=== PATIENT | female | born 1930 | race Caucasian/White ===

== ENCOUNTER 2016-08-16 18:23 | Emergency (ER) | payer MEDICARE ==
[~2016-08-16] VITALS: Ht 154.9 cm; Wt 43.5 kg
[~2016-08-16 18:23] MED LIST: GLIP-115; LEVO50TA7
[2016-08-16 19:27] LABS: Basophils # (auto) 0 uL; Basophils % (auto) 0.4 % (0.0-2.0); Eosinophils # (auto) 0.1 uL; Eosinophils % (auto) 2.1 % (0.0-7.0); Hematocrit 32.5 % (36.0-46.0); Hemoglobin 10.5 g/dL (12.2-16.2); Lymphocytes % (auto) 30.5 % (10.0-50.0); Mean Corpuscular Hemoglobin 31.4 pg (28.0-32.0); Mean Corpuscular Hgb Conc. 32.3 g/dL (32.0-36.0); Mean Corpuscular Volume 97.3 fL (80.0-100.0); Mean Platelet Volume 7.7 fL (7.4-10.4); Monocytes # (auto) 0.7 uL; Neutrophils # (auto) 3.7 uL; Platelet Count (auto) 584 10^3/uL (140-450); Red Cell Distribution Width 15.3 % (11.6-16.0); White Blood Cell 6.5 10^3/uL (4.4-10.8)
[2016-08-16 19:46] LABS: Albumin 2.9 g/dL (3.4-5.0); BUN/Creatinine Ratio 28.7; Bilirubin, Total 0.3 mg/dL (0.2-1.0); Magnesium 2.5 mg/dL (1.6-2.6); Potassium 4.3 mmol/L (3.5-5.1); Total Protein 7.9 g/dL (6.4-8.2)
[2016-08-16] MEDS ORDERED: AMOXICILLIN 200MG/5ml ORAL Susp 50ML PO ONE (22:15)
[2016-08-16 23:33] VITALS: BP 115/75
== END 2016-08-16 23:46 | disposition home or self-care (01) ==
LOC: ER 18:30
DX: J40 Bronchitis, not specified as acute or chronic (principal); E11.9 Type 2 diabetes mellitus without complications; E07.9 Disorder of thyroid, unspecified; Z98.890 Other specified postprocedural states
CPT/HCPCS: 36415; 71020; 80053; 83735; 84484; 85025; 85049; 93005

== ENCOUNTER 2016-09-22 16:04 | Emergency (ER) | payer MEDICARE ==
[2016-09-22] MEDS ORDERED: LACTULOSE 20Gm/30ML SOLN PO ONE (16:45)
[2016-09-22] MEDS ORDERED: FLEET ENEMA(ADULT) 135 ML PR ONE (16:45)
[2016-09-22 21:21] VITALS: BP 130/52
== END 2016-09-22 21:31 | disposition home or self-care (01) ==
LOC: ER 16:10
DX: K59.00 Constipation, unspecified (principal); R10.9 Unspecified abdominal pain; E11.9 Type 2 diabetes mellitus without complications; E07.9 Disorder of thyroid, unspecified; Z79.899 Other long term (current) drug therapy
CPT/HCPCS: 74000; 93005

== ENCOUNTER 2016-10-05 14:52 | Emergency (ER) | payer MEDICARE ==
[~2016-10-05] VITALS: Ht 162.6 cm; Wt 43.1 kg
[2016-10-05] MEDS: LIDOCAINE 2%HCL (LOCAL ANESTH.) INJ 20ML MDV ONE (15:37)
[2016-10-05] MEDS: LIDOCAINE 2%HCL (LOCAL ANESTH.) INJ 20ML MDV IJ ONE (16:16)
[2016-10-05 17:30] VITALS: BP 140/89
== END 2016-10-05 18:09 | disposition home or self-care (01) ==
LOC: EDBD 14:52 → ER 14:52
DX: S01.81XA Laceration without foreign body of other part of head, initial encounter (principal); S09.90XA Unspecified injury of head, initial encounter; E11.9 Type 2 diabetes mellitus without complications; E07.9 Disorder of thyroid, unspecified; W01.0XXA Fall on same level from slipping, tripping and stumbling without subsequent striking against object, initial encounter; Y93.89 Activity, other specified; Y99.8 Other external cause status; Y92.89 Other specified places as the place of occurrence of the external cause
CPT/HCPCS: 12011; 70450

== ENCOUNTER 2016-10-10 20:01 | Emergency (ER) | payer MEDICARE ==
[~2016-10-10] VITALS: Ht 154.9 cm; Wt 45.4 kg
[2016-10-10 21:29] LABS: Basophils # (auto) 0 uL; Basophils % (auto) 0.2 % (0.0-2.0); Eosinophils # (auto) 0.1 uL; Eosinophils % (auto) 1.3 % (0.0-7.0); Hematocrit 34.4 % (36.0-46.0); Hemoglobin 11.4 g/dL (12.2-16.2); Lymphocytes # (auto) 2.6 uL; Lymphocytes % (auto) 30.2 % (10.0-50.0); Mean Corpuscular Hemoglobin 32.4 pg (28.0-32.0); Mean Corpuscular Hgb Conc. 33.1 g/dL (32.0-36.0); Mean Corpuscular Volume 97.8 fL (80.0-100.0); Mean Platelet Volume 8.1 fL (7.4-10.4); Monocytes # (auto) 0.8 uL; Monocytes % (auto) 9.7 % (0.0-12.0); Neutrophils % (auto) 58.6 % (37.0-80.0); Platelet Count (auto) 443 10^3/uL (140-450); White Blood Cell 8.6 10^3/uL (4.4-10.8)
[2016-10-10 21:48] LABS: INR 0.97 (0.9-1.15); Partial Thromboplastin Time 27.1 sec (22.64-33.71)
[2016-10-10 22:13] LABS: B-Type Natriuretic Peptide 50.29 pg/mL (0-100); Temperature: 23.5 C (20.0-25.0)
[2016-10-10 22:20] LABS: Chloride 97 mmol/L (98-107); Potassium 3.8 mmol/L (3.5-5.1); Sodium 136 mmol/L (136-145)
[2016-10-10 22:28] LABS: Albumin 3.3 g/dL (3.4-5.0); Anion Gap 12 (5-15); Aspartate Aminotransferase 8 U/L (15-37); BUN/Creatinine Ratio 15.7; Blood Urea Nitrogen 22 mg/dL (7-18); Calcium 10.7 mg/dL (8.5-10.1); Carbon Dioxide 27 mmol/L (21-32); GFR African American 46 mL/min; GFR Non-African American 38 mL/min; Glucose 104 mg/dL (74-106); Magnesium 1.9 mg/dL (1.6-2.6)
[2016-10-10 22:37] LABS: Alkaline Phosphatase 91 U/L (45-117); Bilirubin, Total 0.3 mg/dL (0.2-1.0); Total Protein 7.9 g/dL (6.4-8.2)
[2016-10-11] MEDS ORDERED: ACETAMINOPHEN 650 mg PER 20 mL UD PO ONE (04:15)
[2016-10-11] MEDS ORDERED: KETOROLAC TROMETH 30 MG/ML 1ML VIAL IV ONE (05:45)
[2016-10-11] MEDS ORDERED: SODIUM CHLORIDE 0.9% 1,000 ML IV ONE (05:45)
[2016-10-11 06:35] VITALS: BP 157/75
== END 2016-10-11 07:18 | disposition home or self-care (01) ==
LOC: ER 20:18
DX: K59.00 Constipation, unspecified (principal); E86.0 Dehydration; E11.9 Type 2 diabetes mellitus without complications; E07.89 Other specified disorders of thyroid
CPT/HCPCS: 36415; 71010; 74176; 80053; 83735; 83880; 84443; 84484; 85025; 85610; 85730; 93005; 96361; 96374; 99285; J1885

== ENCOUNTER 2016-10-15 17:08 | Inpatient (IN) | payer MEDICARE, MEDICAID ==
[~2016-10-15] VITALS: Ht 162.6 cm; Wt 46.0 kg
[2016-10-15 17:51] LABS: Basophils # (auto) 0 uL; Basophils % (auto) 0.5 % (0.0-2.0); Eosinophils # (auto) 0.1 uL; Eosinophils % (auto) 1.4 % (0.0-7.0); Hematocrit 35.5 % (36.0-46.0); Hemoglobin 11.7 g/dL (12.2-16.2); Lymphocytes # (auto) 2.4 uL; Lymphocytes % (auto) 28.4 % (10.0-50.0); Mean Corpuscular Hemoglobin 32.2 pg (28.0-32.0); Mean Corpuscular Volume 97.6 fL (80.0-100.0); Mean Platelet Volume 7.8 fL (7.4-10.4); Monocytes # (auto) 0.9 uL; Monocytes % (auto) 11.4 % (0.0-12.0); Neutrophils # (auto) 4.9 uL; Neutrophils % (auto) 58.3 % (37.0-80.0); Platelet Count (auto) 493 10^3/uL (140-450); Red Cell Distribution Width 13.7 % (11.6-16.0); White Blood Cell 8.3 10^3/uL (4.4-10.8)
[2016-10-15 18:17] LABS: BUN/Creatinine Ratio 13.9; Bilirubin, Total 0.3 mg/dL (0.2-1.0); Calcium 11.9 mg/dL (8.5-10.1); Potassium 3.7 mmol/L (3.5-5.1); Total Protein 7.7 g/dL (6.4-8.2)
[2016-10-15 18:19] LABS: INR 0.99 (0.9-1.15); Partial Thromboplastin Time 27.6 sec (22.64-33.71); Prothrombin Time 10.2 sec (9.37-12.3)
[2016-10-15] MEDS ORDERED: DEXTROSE (50%) 50ML SYRG IV ONE (19:45)
[2016-10-15] MEDS ORDERED: SODIUM CHLORIDE 0.9% 1,000 ML IV SCH (21:18)
[2016-10-15] MEDS ORDERED: ACETAMINOPHEN 325 MG TAB PO PRN (21:30)
[2016-10-15] MEDS ORDERED: DOCUSATE SOD 100 MG CAP PO PRN (21:30)
[2016-10-15] MEDS ORDERED: ONDANSETRON HCL 4 MG/2 ML VIAL IV PRN (21:30)
[2016-10-15] MEDS ORDERED: HYDROcodone-ACET 5/325MG TAB PO PRN (21:30)
[2016-10-15] MEDS ORDERED: DEXTROSE (50%) 50ML SYRG IV PRN (21:30)
[2016-10-15] MEDS ORDERED: TEMAZEPAM 15 MG CAP PO PRN (21:30)
[2016-10-15] MEDS: FAMOTIDINE 20 MG TAB PO SCH (22:33)
[2016-10-15 22:42] LABS: Urine Bilirubin Negative (Negative); Urine Color Yellow (Yellow); Urine Hyaline Cast MOD /lpf (0 - 2); Urine Ketone Negative (Negative); Urine Nitrite Negative (Negative); Urine RBC 15 /hpf (0 - 4); Urine Squamous Epithelial Cell FEW /hpf (<5); Urine Urobilinogen Normal (Negative)
[2016-10-15 22:44] LABS: Urine Blood 1+ /uL (Negative); Urine Glucose 1+ mg/dL (Normal)
[2016-10-15 23:00] VITALS: BP 136/70
[2016-10-15 23:19] VITALS: BP 136/70
[2016-10-16] MEDS: ACCU-CHEK COMFORT CURVE STRIP VI SCH ×5 (00:15→23:35)
[2016-10-16 05:20] LABS: Basophils # (auto) 0 uL; Basophils % (auto) 0.4 % (0.0-2.0); Eosinophils # (auto) 0.1 uL; Eosinophils % (auto) 2.1 % (0.0-7.0); Hematocrit 29.7 % (36.0-46.0); Hemoglobin 9.7 g/dL (12.2-16.2); Lymphocytes % (auto) 29.5 % (10.0-50.0); Mean Corpuscular Hemoglobin 32.1 pg (28.0-32.0); Mean Corpuscular Hgb Conc. 32.6 g/dL (32.0-36.0); Mean Corpuscular Volume 98.6 fL (80.0-100.0); Monocytes # (auto) 0.7 uL; Monocytes % (auto) 11.3 % (0.0-12.0); Neutrophils # (auto) 3.8 uL; Neutrophils % (auto) 56.7 % (37.0-80.0); Platelet Count (auto) 388 10^3/uL (140-450); White Blood Cell 6.6 10^3/uL (4.4-10.8)
[2016-10-16 05:40] VITALS: BP 95/48
[2016-10-16 05:56] LABS: Albumin 2.4 g/dL (3.4-5.0); Bilirubin, Total 0.2 mg/dL (0.2-1.0); Calcium 10.2 mg/dL (8.5-10.1); Potassium 3.7 mmol/L (3.5-5.1); Total Protein 6.2 g/dL (6.4-8.2)
[2016-10-16] MEDS: InsuLIN REG 1unit/0.01ml Soln (100units/ml) SC SCH ×3 (06:25→12:00)
[2016-10-16] MEDS ORDERED: LEVOTHYROXINE SODIUM 50 MCG TAB PO SCH (07:00)
[2016-10-16 08:00] VITALS: BP 104/49
[2016-10-16 09:00] VITALS: BP 104/49
[2016-10-16] MEDS: FERROUS SULFATE 325 MG TAB PO SCH ×2 (10:32→17:57)
[2016-10-16] MEDS: FAMOTIDINE 20 MG TAB PO SCH ×2 (10:32→21:55)
[2016-10-16] MEDS: ENOXAPARIN SOD 30 MG/0.3 ML SYRINGE SC SCH (10:32)
[2016-10-16 11:45] VITALS: BP 104/49
[2016-10-16] MEDS ORDERED: LEVOTHYROXINE SODIUM 100 MCG/5 ML INJ IV ONE (13:30)
[2016-10-16] MEDS: SOD CHL 0.9%/ KCL 20MEQ 1,000 ML IV SCH ×2 (16:03→23:30)
[2016-10-16 16:25] VITALS: BP 103/59
[2016-10-16] MEDS: cefTRIAXone 1GM/50ML D5W 50 ML IV SCH (17:04)
[2016-10-16 21:13] VITALS: BP 116/61
[2016-10-16] MEDS: LACTULOSE 20Gm/30ML SOLN PO SCH (21:55)
[2016-10-17] MEDS: SOD CHL 0.9%/ KCL 20MEQ 1,000 ML IV SCH ×2 (04:23→19:42)
[2016-10-17 05:00] VITALS: BP 122/63
[2016-10-17] MEDS: ACCU-CHEK COMFORT CURVE STRIP VI SCH ×3 (05:42→17:14)
[2016-10-17 06:44] LABS: Calcium 8.8 mg/dL (8.5-10.1); Potassium 4.2 mmol/L (3.5-5.1)
[2016-10-17 08:00] VITALS: BP 133/70
[2016-10-17 09:00] VITALS: BP 133/67
[2016-10-17] MEDS ORDERED: THROAT LOZENGES(CEPASTAT) MT ONE (10:00)
[2016-10-17] MEDS ORDERED: THROAT LOZENGES(CEPASTAT) MT PRN (10:00)
[2016-10-17] MEDS ORDERED: LORATADINE 10 MG TAB PO ONE (10:00)
[2016-10-17] MEDS: LACTULOSE 20Gm/30ML SOLN PO SCH ×2 (10:09→21:58)
[2016-10-17] MEDS: ENOXAPARIN SOD 30 MG/0.3 ML SYRINGE SC SCH (10:10)
[2016-10-17] MEDS: FAMOTIDINE 20 MG TAB PO SCH ×2 (10:10→21:58)
[2016-10-17] MEDS: cefTRIAXone 1GM/50ML D5W 50 ML IV SCH (10:11)
[2016-10-17] MEDS: FERROUS SULFATE 325 MG TAB PO SCH ×2 (10:11→17:11)
[2016-10-17] MEDS: LEVOTHYROXINE SODIUM 100 MCG/5 ML INJ IV SCH (10:11)
[2016-10-17 13:00] VITALS: BP 150/83
[2016-10-17 17:00] VITALS: BP 153/84
[2016-10-17] MEDS: MULTIPLE VITAMINS W/ MINERALS TAB PO SCH (17:11)
[2016-10-17] MEDS: Boost Glucose Control 8 Ounces PO SCH (18:00)
[2016-10-17 22:00] VITALS: BP 144/77
[2016-10-18] MEDS: ACCU-CHEK COMFORT CURVE STRIP VI SCH ×4 (00:16→23:10)
[2016-10-18] MEDS: SOD CHL 0.9%/ KCL 20MEQ 1,000 ML IV SCH ×3 (03:24→21:19)
[2016-10-18 05:00] VITALS: BP 137/66
[2016-10-18 09:00] VITALS: BP 140/75
[2016-10-18] MEDS: LACTULOSE 20Gm/30ML SOLN PO SCH ×2 (10:00→21:59)
[2016-10-18] MEDS ORDERED: glipiZIDE 5 MG TAB PO ONE (12:00)
[2016-10-18 13:12] VITALS: BP 150/73
[2016-10-18] MEDS: LEVOTHYROXINE SODIUM 100 MCG/5 ML INJ IV SCH (13:55)
[2016-10-18] MEDS: LORATADINE 10 MG TAB PO SCH (13:56)
[2016-10-18] MEDS: cefTRIAXone 1GM/50ML D5W 50 ML IV SCH (13:56)
[2016-10-18] MEDS: FERROUS SULFATE 325 MG TAB PO SCH (13:56)
[2016-10-18] MEDS: FAMOTIDINE 20 MG TAB PO SCH ×2 (13:56→21:59)
[2016-10-18] MEDS: MULTIPLE VITAMINS W/ MINERALS TAB PO SCH (13:56)
[2016-10-18] MEDS: Boost Glucose Control 8 Ounces PO SCH (13:56)
[2016-10-18] MEDS: ENOXAPARIN SOD 30 MG/0.3 ML SYRINGE SC SCH (13:57)
[2016-10-18 17:40] VITALS: BP 131/66
[2016-10-18 22:00] VITALS: BP 169/79
[2016-10-19] MEDS: ACCU-CHEK COMFORT CURVE STRIP VI SCH ×2 (05:19→12:11)
[2016-10-19 05:30] VITALS: BP 161/80
[2016-10-19 06:56] LABS: BUN/Creatinine Ratio 10.5; Calcium 8.1 mg/dL (8.5-10.1); Potassium 3.6 mmol/L (3.5-5.1)
[2016-10-19] MEDS ORDERED: glipiZIDE 5 MG TAB PO SCH (07:00)
[2016-10-19] MEDS: FERROUS SULFATE 325 MG TAB PO SCH ×2 (08:00→08:39)
[2016-10-19] MEDS: cefTRIAXone 1GM/50ML D5W 50 ML IV SCH (08:40)
[2016-10-19] MEDS ORDERED: LEV100T PO (09:32)
[2016-10-19] MEDS ORDERED: CIPR-173 PO (09:32)
[2016-10-19] MEDS: LACTULOSE 20Gm/30ML SOLN PO SCH ×2 (10:00→10:49)
[2016-10-19] MEDS ORDERED: CIPROFLOXACIN HCL 500 MG TAB PO SCH ×2 (10:00)
[2016-10-19] MEDS: LORATADINE 10 MG TAB PO SCH (10:49)
[2016-10-19] MEDS: ENOXAPARIN SOD 30 MG/0.3 ML SYRINGE SC SCH (10:49)
[2016-10-19] MEDS: MULTIPLE VITAMINS W/ MINERALS TAB PO SCH (10:49)
[2016-10-19] MEDS: LEVOTHYROXINE SODIUM 100 MCG/5 ML INJ IV SCH (10:49)
[2016-10-19] MEDS: FAMOTIDINE 20 MG TAB PO SCH (10:49)
[2016-10-19] MEDS: SOD CHL 0.9%/ KCL 20MEQ 1,000 ML IV SCH (11:30)
== END 2016-10-19 16:55 | disposition home or self-care (01) | DRG 682 ==
LOC: ER 17:08 → OVERFLOW 17:09 → WEST WING 23:07 → EAST 10-19 05:20
PROVIDERS: ADMIT Nurse Practitioner; ATTEND Internal Medicine
DX: N17.9 Acute kidney failure, unspecified (principal); E43 Unspecified severe protein-calorie malnutrition; N39.0 Urinary tract infection, site not specified; J98.11 Atelectasis; Z68.1 Body mass index [BMI] 19.9 or less, adult; E11.649 Type 2 diabetes mellitus with hypoglycemia without coma; D50.9 Iron deficiency anemia, unspecified; E03.9 Hypothyroidism, unspecified; R62.7 Adult failure to thrive; F03.90 Unspecified dementia, unspecified severity, without behavioral disturbance, psychotic disturbance, mood disturbance, and anxiety; E83.52 Hypercalcemia; E86.0 Dehydration; K59.00 Constipation, unspecified; Z91.81 History of falling; Z79.899 Other long term (current) drug therapy; Z83.3 Family history of diabetes mellitus; Z80.9 Family history of malignant neoplasm, unspecified
CPT/HCPCS: 36415; 71020; 80048; 80053; 81001; 82962; 83036; 83735; 83970; 84439; 84443; 85025; 85610; 85730; 87086; 87400; 93005; 96361; 96374; 97001; J0696; J1815; J3490